=== PATIENT | male | born 1985 | race Caucasian/White ===

== ENCOUNTER 2018-07-06 18:02 | Emergency (ER) | payer SELFPAY ==
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
[2018-07-06] MEDS ORDERED: LIDOCAINE 1% INJ-PF (10 MG/ML) 30 ML SDV INJ ONE (18:57)
[2018-07-06] MEDS ORDERED: LIDOCAINE 1% INJ-PF (10 MG/ML) 30 ML SDV ONE (21:37)
[2018-07-06] MEDS ORDERED: DIPH/PERTUSS(ACELL)/TETANUS VAC/PF 0.5 ML SYR (>=10YO) IM ONE (23:03)
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
[2018-07-06 23:32] VITALS: BP 125/80
== END 2018-07-06 23:45 | disposition home or self-care (01) ==
LOC: ER 18:02
DX: S81.812A Laceration without foreign body, left lower leg, initial encounter (principal); W45.8XXA Other foreign body or object entering through skin, initial encounter; Y93.89 Activity, other specified; F17.200 Nicotine dependence, unspecified, uncomplicated; Z23 Encounter for immunization; Z88.0 Allergy status to penicillin
CPT/HCPCS: 99282; 90471; 90715; 12001; J3490

== ENCOUNTER 2019-03-03 01:45 | Emergency (ER) | payer SELFPAY ==
[2019-03-03] MEDS ORDERED: TETRACAINE HCL 0.5% OPH SOLN 4 ML ONE (05:02)
--- NOTE | 2019-03-03 05:33 | ER Document Report ---
HPI - HPI Patient complains to provider of: eye fb Time Seen by Provider: 03/03/19 05:32 Pain Level: 5 Context: 33 yr old male pt with the listed pmh here for right eye pain/drainage/redness x 2 days. States feels like he has a metal shard in the eye. No glasses or contacts. last TDAP was __ 5yrs ago. No eye surgeries. No hx of glaucoma or diabetic retinopathy. No painful eoms. No fb sensation. Hasn't put anything in the eyes. no other known source or cause. No hx of asthma or diabetes. No recent abx or steroids. Hasn't sought care until now. No recent illness. No fevers, blurry vision or photophobia. No other complaints at this time. - EENT EENT: REPORTS: Eye problems - Right eye Past Medical History - General Information source: Patient - Social History Smoking Status: Current Every Day Smoker Family History: DM, Malignancy Patient has suicidal ideation: No Patient has homicidal ideation: No Pulmonary Medical History: Reports: Hx Bronchitis, Hx Pneumonia Neurological Medical History: Reports: Hx Migraine Renal/ Medical History: Reports: Hx Kidney Stones. Denies: Hx Peritoneal Dialysis Musculoskeletal Medical History: Reports Hx Arthritis, Reports Hx Musculoskeletal Deformity, Reports Hx Musculoskeletal Trauma Psychiatric Medical History: Reports: Hx Attention Deficit Hyperactivity Disorder Traumatic Medical History: Reports: Hx Fractures Past Surgical History: Reports: Hx Adenoidectomy, Hx Orthopedic Surgery - R knee, Left Ankle,reconstruction, Hx Tonsillectomy - Immunizations Immunizations up to date: Yes Hx Diphtheria, Pertussis, Tetanus Vaccination: Yes Vertical Provider Document - CONSTITUTIONAL Notes: GENERAL_APPEARANCE: alert, cooperative, mild obvious discomfort. Pleasant, s miling, speaking in full sentences, in no sign of pain or resp distress, lights on in the room. easily sitting up VITALS: reviewed, see vital signs table. HEAD: no swelling\tenderness on the head. Normocephalic, atraumatic, no neal signs, no raccoon eyes, EARS: normal TMs and canals bilat. No drainage or bleeding. No hemotympanum EYES: PERRL, EOMI without pain, conjunctiva clear, cornea clear, no discharge_from_eyes. No photophobia. No nystagmus. No grossly visible fb. No hyphema. Eyelids wnl. No styes. No ttp or crepitation of the orbits. No sign of orbital or periorbital cellulitis NOSE: no drainage or bleeding. No ttp of the sinuses THROAT: normal pharynx/tonsils. Tongue protrudes midline. Normal speech. No oral lesions, erythema, exudates, or thrush. No swelling. No trouble breathing or swallowing. No decreased moisture. No sign of dental abscess. NECK: no swelling or ttp. No lymphadenopathy. Full rom and full strength. No meningeal signs or signs of central cord syndrome HEART: RRR LUNGS: CTAB, good air exchange diffusely EXTREMITIES: full rom and full strength in all extremities. Brisk cap refill. Good pulses. 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 Normal gait. No swelling or ttp of the extremities. NEURO: cranial nerves 2-12 intact, cerebellar function intact, motor and sensation intact SKIN: warm, dry, good color. No grossly visible overlying skin changes to suggest trauma. - INFECTION CONTROL TRAVEL OUTSIDE OF THE [place] IN LAST 30 DAYS: No Course - Re-evaluation Re-evalutation: 03/03/19 06:53 Pt presents with mild _ eye pain/redness/drainage x days. pt has a small corneal abrasion on fluorescein exam. no painful eoms. no photophobia. no vision changes. visual acuity as noted and unremarkable. tonopen exam reveals an IOP as documented and wnl. no sign of globe rupture, traumatic iritis, fb, orbital or periorbital cellulitis. pt denies sensation of curtain falling. low suspicion for retinal detachment. tdap was updated. will dc with _ eye drops. follow up with eye doctor in 1-2 days. return with any worsening symptoms. pt understands and agrees to plan. Vss. Afebrile. Well appearing, satting well on ra. Neurononfocal.. On reexam, pt improved with tx listed. remained stable. nontoxic. well appearing. pain controlled. tolerating po. requesting to go home. Documentation achieved through voice recording which may lead to some occasional accidental typographical errors. Extensive efforts have been made to proof read documentation to make sure these are the least as possible. ED EYE EXAMS: Pt consented to all eye exams. exams without incident right eye fluorescein eye exam: anterior chamber is_clear, No flare cells present, cornea of the right has a small punctate metallic superficial fb at about 3oclock in the eye on fluorescein staining with roman lamp after anesthetized with 2 drops of tetracaine. neg ruba sign. left 4eye not fluoresceined. no rust ring. small superficial abrasion under where the metalitic fb use to be. right eye fb removal: pt consented to procedure. procedure without incident. the right eye was anesthetized with tetracaine. a sterile q-tip was then use to gently and easily brush off the small metalic fb easily on the first try. it was removed completely intact. eye was then flushed with NS with good result. no other residual fb or rust ring. eye re-flouresceined post fb removal and had a small puntate corneal abrasion until the area where the metal shard was previously. pot informed of his findings. neg ruba sign. Visual Acuity: 20/ L, 20/ R, and 20/ B- uncorrected Category Date Time Status Tetracaine HCl/Pf [Tetracaine HCl 0.5% Oph Soln 4 ml] Med 03/03/19 05:02 Discontinued 80 drop .ROUTE .STK-MED ONE 03/03/19 07:14 - Vital Signs Vital signs: Temp Pulse Resp BP Pulse Ox 97.9 F 100 16 140/81 H 97 03/03/19 01:47 03/03/19 01:47 03/03/19 01:47 03/03/19 01:47 03/03/19 01:47 03/03/19 06:56 Temp Pulse Resp BP Pulse Ox 03/03/19 01:47 97.9 F 100 16 140/81 H 97 Procedures - Eye Procedure Right Time completed: 07:00 Eye Irrigated w/ Saline (ccs): 10 Foreign body removal: Right Alcaine Drops Administered: Yes Fluorescein applied: Right Discharge - Discharge Clinical Impression: Corneal abrasion, right Qualifiers: Encounter type: initial encounter Qualified Code(s): S05.01XA - Injury of conjunctiva and corneal abrasion without foreign body, right eye, initial encounter Corneal FB (foreign body) Qualifiers: Encounter type: initial encounter Laterality: right Qualified Code(s): T15.01XA - Foreign body in cornea, right eye, initial encounter Condition: Good Disposition: HOME, SELF-CARE Instructions: Corneal Foreign Body ([facility]) Additional Instructions: Follow-up with PCP/eye doctor in 1 to 2 days. Return for any worsening symptoms. tylenol or motrin as needed for any pain or fever if not allergic. take the medication as prescribed. Cool compresses to the eye. Avoid rubbing it. Prescriptions: Erythromycin Base [Erythromycin Oph 1 Gm Oint Ud] 1 applic OD ASDIR #1 tube Referrals: FANTA GROSS MD [ACTIVE STAFF] - Follow up tomorrow
[2019-03-03 07:20] VITALS: BP 133/79
== END 2019-03-03 07:30 | disposition home or self-care (01) ==
LOC: ER 01:45
DX: T15.01XA Foreign body in cornea, right eye, initial encounter (principal); X58.XXXA Exposure to other specified factors, initial encounter; H57.11 Ocular pain, right eye; F17.200 Nicotine dependence, unspecified, uncomplicated; Z87.442 Personal history of urinary calculi
CPT/HCPCS: 99283; J3490